=== PATIENT | female | born 1990 | race American Indian/Alaskan Native ===

== ENCOUNTER 2018-11-24 12:31 | Emergency (ER) | payer BC ==
[2018-11-24] MEDS ORDERED: HYDROmorphone 0.5 MG/0.5 ML Syringe IVPUSH ONE (12:40)
[2018-11-24] MEDS ORDERED: Metoclopramide 10 MG/2 ML SDV IVPUSH ONE (12:41)
[2018-11-24] MEDS ORDERED: Dextrose 5%-0.9% NaCl 1,000 ML IV SCH (12:45)
--- NOTE | 2018-11-24 12:47 | EDM.PDOC ---
ED HPI GENERAL MEDICAL PROBLEM - General Chief Complaint: Trauma Stated Complaint: [facility] Time Seen by Provider: 11/24/18 12:31 Source of Information: Reports: Patient, EMS History Limitations: Reports: No Limitations - History of Present Illness INITIAL COMMENTS - FREE TEXT/NARRATIVE: 28-year-old female brought into the ED per [facility]. Trauma alert was called. She was apparently running in a horse race in [facility]. She states the horse once straight when it was supposed to turn and she was thrown off sideways landing hard on her left shoulder and upper back and neck area. The horse also fell but did not land on her. She reports she did not suffer any loss of conscious. She has no head injury. She arises c-collar in place in the left arm in a sling. She feels pain in her left upper back over the scapula upper thoracic spine left side of neck and left clavicle. Also some pain in the left upper ribs anteriorly. No pain in the abdomen lower back or lower extremities or pelvis. Injury occurred about 11:00 this morning. She arrives with no IV in place. She has not had anything for pain. She denies feeling nauseated at this time. States last period was last week. She does not believe she could be . Onset: Today Onset Date: 11/24/18 Onset Time: 11:00 Duration: Hour(s):, Constant Location: Reports: Neck (Left cervical neck pain.), Chest (Left shoulder and clavicle pain), Back (Upper thoracic back pain.), Upper Extremity, Left Quality: Reports: Ache Severity: Moderate Improves with: Reports: Rest Worsens with: Reports: Other, Movement Context: Reports: Trauma (Thrown off a running hoarse and landed hard on her left shoulder and upper back.). Denies: Activity (Deep breathing makes the pain in her back worse as well.), Exercise, Lifting, Sick Contact Associated Symptoms: Reports: Chest Pain. Denies: Confusion, Cough, Diaphoresis , Fever/Chills, Headaches, Loss of Appetite, Nausea/Vomiting, Rash, Shortness of Breath, Syncope, Weakness Treatments GERIATRIC NURSE ASSISTANT: Reports: Other (see below) (None patient arises no IV present.) Left Back Pain Score (Numeric/FACES): 9 - Related Data Allergies Allergy/AdvReac Type Severity Reaction Status Date / Time No Known Allergies Allergy Verified 11/24/18 12:38 Home Meds: Home Meds oxyCODONE HCl/Acetaminophen [Percocet 5-325 mg Tablet] 1 - 2 each PO Q4H PRN # 16 tablet 11/24/18 [Rx] valACYclovir [Valtrex] 1,000 mg PO DAILY 11/24/18 [History] Past Medical History Dermatologic History: Reports: Other (See Below) (Chronic genital herpes. He is on valacyclovir 1 g daily.) Social & Family History - Tobacco Use Smoking Status *Q: Never Smoker - Recreational Drug Use Recreational Drug Use: No Review of Systems - Review of Systems Review Of Systems: See Below Constitutional: Reports: No Symptoms Eyes: Reports: No Symptoms Ears: Reports: No Symptoms Nose: Reports: No Symptoms Mouth/Throat: Reports: No Symptoms Respiratory: Reports: No Symptoms Cardiovascular: Reports: No Symptoms GI/Abdominal: Reports: No Symptoms Genitourinary: Reports: No Symptoms Musculoskeletal: Reports: No Symptoms Skin: Reports: No Symptoms Neurological: Reports: No Symptoms Psychiatric: Reports: No Symptoms ED EXAM, GENERAL - Physical Exam Exam: See Below Exam Limited By: No Limitations General Appearance: Alert, WD/WN, Mild Distress, Other (In mild pain with movement particularly sitting up or moving her upper back and left shoulder.) Eye Exam: Bilateral Eye: Normal Inspection Ears: Normal TMs Nose: Normal Inspection Throat/Mouth: Normal Inspection, Normal Lips, Normal Teeth, Normal Oropharynx, Other (No dental injury or tongue injury.) Head: Atraumatic, Normocephalic. No: Facial Swelling, Facial Tenderness Neck: Tender Lateral, Other (C-collar was opened up and she does have tenderness along the left lower cervical spine from C4-C7 on the left side. C- collar was replaced until cleared by CT scan. She has normal laryngeal crepitus.). No: Lymphadenopathy (L) ( until cleared by CT scan.), Lymphadenopathy (R) Respiratory/Chest: No Respiratory Distress, Lungs Clear, Normal Breath Sounds, No Accessory Muscle Use, Other (Chest wall tenderness left upper anterior ribs particularly ribs to 3 and 4.) Cardiovascular: Normal Peripheral Pulses, Regular Rate, Rhythm, No Edema, No Gallop, No Murmur, No Rub Peripheral Pulses: 3+: Posterior Tibial (L), Posterior Tibial (R), Dorsalis Pedis (L), Dorsalis Pedis (R) GI/Abdominal: Normal Bowel Sounds, Soft, Non-Tender, No Organomegaly, No Distention, No Abnormal Bruit, No Mass, Pelvis Stable Back Exam: Normal Inspection, Vertebral Tenderness (Vertebral tenderness upper midline of the thoracic spine starting at T3-T6 vertebra. No abrasions or contusions to the entire back appreciated. No pain to palpation mid back or lumbar spine.) Extremities: Arm Pain (Left humeral pain. Left clavicular pain.), Other (She has some abrasions to the anterior and posterior aspect of her right upper arm. She has full range of motion of the arm however when she raises the arm above 90 she expresses pain in the left collarbone area. No injuries to the lower extremities with full internal/external rotation of both hips normal palpation of the patellas and knees and ankles. On the left side her arm is in a sling. She has good radial ulnar pulses. Good clinical trial specialist strength. Patient supination of the elbow. Pain left shoulder although no pain over the acromioclavicular joint.). No: Pedal Edema Neurological: Alert, Oriented, CN II-XII Intact, Normal Cognition, No Motor/ Sensory Deficits Psychiatric: Normal Affect Skin Exam: Warm, Dry, Normal Color, No Rash Course - Vital Signs Last Recorded V/S: Last Vital Signs Temp 36.6 C 11/24/18 12:35 Pulse 71 11/24/18 12:35 Resp 16 11/24/18 12:35 BP 119/83 11/24/18 12:35 Pulse Ox 96 11/24/18 12:35 - Orders/Labs/Meds Orders: Active Orders 24 hr Category Date Time Status Cervical Spine wo Cont [CT] Stat Exams 11/24/18 12:41 Taken Chest 1V Frontal [CR] Stat Exams 11/24/18 12:45 Taken Humerus Lt [CR] Stat Exams 11/24/18 12:58 Taken Shoulder Comp Lt [CR] Stat Exams 11/24/18 12:43 Taken Thoracic Spine wo Cont [CT] Stat Exams 11/24/18 12:42 Taken HCG QUALITATIVE,URINE [URCHEM] Stat Lab 11/24/18 12:50 Ordered URINALYSIS W/O MICROSCOPIC [UA W/O MICROSCOPIC] [URIN] Lab 11/24/18 12:47 Ordered Stat Dextrose 5%-0.9% NaCl [Dextrose 5%-Normal Saline] 1,000 Med 11/24/18 12:45 Active ml IV ASDIRECTED Medication Orders Dextrose/Sodium Chloride (Dextrose 5%-Normal Saline) 1,000 mls @ 150 mls/hr IV ASDIRECTED CONSUELO Last Admin: 11/24/18 12:51 Dose: 150 mls/hr Labs: Laboratory Tests 11/24/18 11/24/18 Range/Units 12:24 12:24 WBC 10.79 H (3.98-10.04) K/mm3 RBC 4.69 (3.98-5.22) M/mm3 Hgb 12.7 (11.2-15.7) gm/L Hct 40.0 (34.1-44.9) % MCV 85.3 (79.4-94.8) fl MCH 27.1 (25.6-32.2) pg MCHC 31.8 L (32.2-35.5) g/dl RDW Std Deviation 44.5 (36.4-46.3) fL Plt Count 241 (182-369) K/mm3 MPV 10.9 (9.4-12.3) fl Neutrophils % (Manual) 78 H (40-60) % Band Neutrophils % 0 (0-10) % Lymphocytes % (Manual) 21 (20-40) % Atypical Lymphs % 0 % Monocytes % (Manual) 1 L (2-10) % Eosinophils % (Manual) 0 L (0.7-5.8) % Basophils % (Manual) 0 L (0.1-1.2) Platelet Estimate Adequate RBC Morph Comment Normal Sodium 142 (136-145) mEq/L Potassium 3.7 (3.5-5.1) mEq/L Chloride 106 (98-107) mEq/L Carbon Dioxide 25 (21-32) mEq/L Anion Gap 14.7 (5-15) BUN 10 (7-18) mg/dL Creatinine 1.1 H (0.55-1.02) mg/dL Est Cr Clr Drug Dosing 79.57 mL/min Estimated GFR (MDRD) 59 (>60) mL/min BUN/Creatinine Ratio 9.1 L (14-18) Glucose 99 (74-106) mg/dL Calcium 10.8 H (8.5-10.1) mg/dL Total Bilirubin 0.5 (0.2-1.0) mg/dL AST 23 (15-37) U/L ALT 31 (14-59) U/L Alkaline Phosphatase 83 (46-116) U/L Total Protein 8.0 (6.4-8.2) g/dl Albumin 4.3 (3.4-5.0) g/dl Globulin 3.7 gm/dL Albumin/Globulin Ratio 1.2 (1-2) Meds: Medications Generic Name Dose Route Start Last Admin Trade Name Freq PRN Reason Stop Dose Admin Dextrose/Sodium Chloride 1,000 mls @ 150 mls/hr 11/24/18 12:45 11/24/18 12:51 Dextrose 5%-Normal Saline IV 150 mls/hr ASDIRECTED CONSUELO Administration Discontinued Medications Generic Name Dose Route Start Last Admin Trade Name Freq PRN Reason Stop Dose Admin Hydromorphone HCl 0.5 mg 11/24/18 12:40 11/24/18 12:51 Dilaudid IVPUSH 11/24/18 12:41 0.5 mg ONETIME ONE Administration Metoclopramide HCl 7.5 mg 11/24/18 12:41 11/24/18 12:51 Reglan IVPUSH 11/24/18 12:42 7.5 mg ONETIME ONE Administration - Radiology Interpretation Free Text/Narrative:: 20-year-old female presents to the ED per [facility]. She was involved in a horse race and was thrown off a running hoarse. She landed hard on her left shoulder injuring her left lateral neck left shoulder left scapula , pain in the upper thoracic spine T3-T6 level. Abrasions to the right arm. Pain left humerus. Pain left upper anterior ribs and collarbone. Plan CT cervical spine. CT thoracic spine. Chest x-ray left shoulder x-ray left humerus x-ray. IV will be normal saline 150 mils per hour. Routine labs collected. This will include a urine test although the patient states her last menstrual period was last week. Given Dilaudid 1 mg IV for pain relief with Reglan 7.5 mg IV as well. - Re-Assessments/Exams Free Text/Narrative Re-Assessment/Exam: 11/24/18 14:00: CT cervical spine is within normal limits. CT thoracic spine is within normal limits. Chest x-ray is within normal limits. Left shoulder is within normal limits. Left humerus is normal as well. Eye no fractures in the clavicle on chest x-ray. On reexamination she has tenderness over the sternal clavicular junction on the left side and appears to have strained this joint. This be treated conservatively with sling and swath. Ice pack to the area one half hour out of every 4 hours for 2 days. Pain medication Percocet 5/325 mg one or 2 every 4-6 hours for the next 2-3 days and then Motrin 600 mg every 6 hours when necessary. Follow-up should be with personal physician or Dr. Parada orthopedic surgeon in 10 days to 2 weeks time.Labs reveal a white blood cell count of 10.79 with 70% neutrophils and no bands. Hemoglobin is 12.7 with hematocrit of 40. Reticulocyte count is 241,000. Sodium is 142 with potassium of 3.7. Chloride 106 with a bicarbonate 25. Anion gap is 14.7. PT and is 10. Creatinine is 1.1. Glucose is 99. Calcium is slightly elevated at 10.8. Total bilirubin and liver function are normal. Departure - Departure Time of Disposition: 14:26 Disposition: Home, Self-Care 01 Condition: Fair Clinical Impression: Animal-rider injured by fall from or being thrown from horse in noncollision accident, initial encounter, Strain of thoracic spine Sprain of cervical neck Qualifiers: Encounter type: initial encounter Qualified Code(s): S13.9XXA - Sprain of joints and ligaments of unspecified parts of neck, initial encounter Sternoclavicular joint strain Qualifiers: Encounter type: initial encounter Qualified Code(s): S29.011A - Strain of muscle and tendon of front wall of thorax, initial encounter Abrasion of left upper arm Qualifiers: Encounter type: initial encounter Qualified Code(s): S40.812A - Abrasion of left upper arm, initial encounter - Discharge Information *PRESCRIPTION DRUG MONITORING PROGRAM REVIEWED*: Not Applicable *COPY OF PRESCRIPTION DRUG MONITORING REPORT IN PATIENT CHERIE: Not Applicable Prescriptions: oxyCODONE HCl/Acetaminophen [Percocet 5-325 mg Tablet] 1 - 2 each PO Q4H PRN # 16 tablet PRN Reason: pain relief. Forms: ED Department Discharge Additional Instructions: Evaluation in the emergency room today in regards to injuries sustained from being thrown from a horse that was running. Injuries were that of cervical neck strain. CT of the neck bones reveals no fractures or dislocations. Similarly CT of the thoracic spine shows no fractures or malalignment. You have pain of the upper thoracic spine thoracic 3 to thoracic 6 vertebra. Abrasions to the right posterior and anterior upper arm. Major pain is to the sternoclavicular joint at the breast bone. Joint has been strained significantly. Fractures of the collarbone were identified. No fractures of the left upper extremity were identified. Chest x-ray reveals no fracture of the ribs. Treatment is sling and swath of the right upper extremity for the next 3 weeks to allow the sternoclavicular joint on the left side to heal. Follow-up with Dr. Parada-- orthopedic surgeon on second floor of the hospital in 10-14 days time. Please phone [phone] to arrange an appointment. Treatment to sore areas is ice pack to the area for one half hour out of every 4 hours for the next 2 days to limit swelling. May use Motrin 600 mg every 6 hours to reduce pain and inflammation. May use Percocet tabs 5/325 mg one or 2 every 4-6 hours as necessary for pain not controlled by Motrin alone for the next 2-4 days. After this Motrin should be good enough to control pain. Follow-up with personal care physician if any further problems occur. Expect to be a lot more stiff and sore over the next 2448 hrs. particularly upper back neck and shoulders. - My Orders Last 24 Hours: My Active Orders 11/24/18 12:41 Cervical Spine wo Cont [CT] Stat 11/24/18 12:42 Thoracic Spine wo Cont [CT] Stat 11/24/18 12:43 Shoulder Comp Lt [CR] Stat 11/24/18 12:45 Chest 1V Frontal [CR] Stat Dextrose 5%-0.9% NaCl [Dextrose 5%-Normal Saline] 1,000 ml IV ASDIRECTED 11/24/18 12:47 URINALYSIS W/O MICROSCOPIC [UA W/O MICROSCOPIC] [URIN] Stat 11/24/18 12:50 HCG QUALITATIVE,URINE [URCHEM] Stat 11/24/18 12:58 Humerus Lt [CR] Stat - Assessment/Plan Last 24 Hours: My Active Orders 11/24/18 12:41 Cervical Spine wo Cont [CT] Stat 11/24/18 12:42 Thoracic Spine wo Cont [CT] Stat 11/24/18 12:43 Shoulder Comp Lt [CR] Stat 11/24/18 12:45 Chest 1V Frontal [CR] Stat Dextrose 5%-0.9% NaCl [Dextrose 5%-Normal Saline] 1,000 ml IV ASDIRECTED 11/24/18 12:47 URINALYSIS W/O MICROSCOPIC [UA W/O MICROSCOPIC] [URIN] Stat 11/24/18 12:50 HCG QUALITATIVE,URINE [URCHEM] Stat 11/24/18 12:58 Humerus Lt [CR] Stat
--- NOTE | 2018-11-25 13:39 | CR ---
Chest: Frontal view of the chest was obtained. Comparison: No prior chest x-ray. Heart size and mediastinum are normal. Lungs are clear. Bony structures are grossly intact. Impression: 1. Nothing acute is seen on frontal chest x-ray. Diagnostic code #1
--- NOTE | 2018-11-25 13:39 | CT ---
CT cervical spine Technique: Multiple axial sections were obtained from above C1 inferiorly to the bottom of T2. Reconstructed sagittal and coronal images were reviewed. Comparison: No prior cervical spine imaging. Findings: Multiple dental caries are identified on the sagittal view. Vertebral body heights and disc spaces are maintained. No bony central or bony neural foraminal stenosis is seen. No fracture or subluxation is seen. Impression: 1. Multiple dental caries. 2. Nothing acute is appreciated on CT study of the cervical spine. Diagnostic code #3 I agree with preliminary report from [facility], finalized on 11/24/18, 2:49 PM Central Time
--- NOTE | 2018-11-25 14:24 | CR ---
Left humerus: Two views of the left humerus were obtained. Comparison: No previous study. No fracture or other bony abnormality is seen. Pressure: 1. No abnormality is appreciated on two-view left humerus study. Diagnostic code #1
--- NOTE | 2018-11-25 14:44 | CR ---
Left shoulder: Three views of the left shoulder were obtained. Comparison: No previous study. Acromioclavicular and glenohumeral joints are within normal limits. No fracture, dislocation or other bony abnormality is seen. Impression: 1. No abnormality is appreciated on three-view left shoulder study. Diagnostic code #1
--- NOTE | 2018-11-25 14:44 | CT ---
CT thoracic spine Technique: Multiple axial sections through the thoracic spine were obtained. Reconstructed sagittal and coronal images were obtained. Findings: Vertebral body heights and disc spaces are maintained. No bony central or bony neural foraminal stenosis is seen. No fracture is identified. No abnormal subluxation is seen on the reconstructed sagittal images. Impression: 1. No abnormality is appreciated on CT study of the thoracic spine. Diagnostic code #1 I agree with preliminary report from [facility], finalized on 11/24/18, 2:51 PM Central Time
== END 2018-11-24 14:42 | disposition home or self-care (01) ==
LOC: JD.ED 12:31 → EDBD 12:31 → JD.ED 14:42
DX: S13.9XXA Sprain of joints and ligaments of unspecified parts of neck, initial encounter (principal); S29.011A Strain of muscle and tendon of front wall of thorax, initial encounter; S40.812A Abrasion of left upper arm, initial encounter; V80.010A Animal-rider injured by fall from or being thrown from horse in noncollision accident, initial encounter
CPT/HCPCS: 36415; 71045; 72125; 72128; 73030; 73060; 80053; 85007; 85027; 96361; 96374; 96375; 99285; J1170; J2765; J7042; 99284